=== PATIENT | male | born 1955 | race African-American/Black ===

== ENCOUNTER 2019-03-17 12:59 | Inpatient (IN) | payer OTHER ==
[2019-03-17] MEDS ORDERED: ASPIRIN PO ONE (13:13)
--- NOTE | 2019-03-17 13:45 | XRay Report ---
AP CHEST: HISTORY: chest pain AP view of the chest demonstrates a normal mediastinal and cardiac contour with clear lungs and normal bony and soft tissue structures. IMPRESSION: Unremarkable AP chest.
--- NOTE | 2019-03-17 13:46 | Emergency Department Report ---
HPI - General Chief Complaint: Chest Pain Time Seen by Provider: 03/17/19 13:18 - HPI HPI: 63 M presents to the emergency department from [facility] with complaint of some chest pain, shortness of breath and dizziness that started earlier today. The patient does not speak any Azeri but a coworker employer is currently at bedside translating. 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 He drank some water and laid down with some improvement of the symptoms returned. He was brought over to [facility] who found him to have high blood pressure, low oxygen, and sent him in to the emergency department for further evaluation. The patient is a tobacco smoker but denies any family history. He does have history of high blood pressure. ED Past Medical Hx - Past Medical History Previous Medical History?: No Additional medical history: unknown - Social History Smoking Status: Unknown if ever smoked Substance Use Type: None - Medications Home Medications: Home Medications Medication Instructions Recorded Confirmed Last Taken Type amLODIPine [Norvasc] 5 mg PO DAILY 03/17/19 03/17/19 Unknown History ED Review of Systems ROS: Stated complaint: CHEST PAIN Other details as noted in HPI Comment: All other systems reviewed and negative Constitutional: denies: chills, fever Eyes: denies: eye pain, vision change ENT: denies: ear pain, throat pain Respiratory: shortness of breath. denies: cough Cardiovascular: chest pain. denies: palpitations Gastrointestinal: denies: abdominal pain, vomiting Genitourinary: denies: dysuria, discharge Musculoskeletal: denies: back pain, arthralgia Skin: denies: rash, lesions Neurological: denies: headache, weakness Physical Exam - Physical Exam Physical Exam: GENERAL: The patient is well-developed well-nourished. HENT: Normocephalic. Atraumatic. Patient has moist mucous membranes. EYES: Extraocular motions are intact. Pupils equal reactive to light bilaterally. NECK: Supple. Trachea is midline. CHEST/LUNGS: Clear to auscultation. There is no respiratory distress noted. HEART/CARDIOVASCULAR: Regular. There is no tachycardia. There is no murmur. ABDOMEN: Abdomen is soft, nontender. Patient has normal bowel sounds. There is no abdominal distention. SKIN: Skin is warm and dry. NEURO: The patient is awake, alert, and cooperative. The patient has no focal neurologic deficits. MUSCULOSKELETAL: There is no tenderness or deformity. There is no limitation range of motion. There is no evidence of acute injury. ED Medical Decision Making - Lab Data Result diagrams: 03/17/19 13:17 03/17/19 13:17 - EKG Data -: EKG Interpreted by Me EKG shows normal: sinus rhythm, axis, intervals, QRS complexes, ST-T waves (nonspecific ST-T waves) Rate: normal - EKG Data When compared to previous EKG there are: previous EKG unavailable Interpretation: nonspecific ST-T wave tremayne - Radiology Data Radiology results: image reviewed interpreted by me: Chest x-ray does not show any acute process. There are no pleural effusions, obvious pneumonia and there is no pneumothorax. - Medical Decision Making The patient presents to the emergency department with complaint of a few episodes of some chest pain and dizziness. EKG does not show any signs of ST e levation TN. Patient has had negative troponins 2 and a negative d-dimer thus far. Vital signs stable throughout his ED course. The patient has risk factors of tobacco use and age. His family, translators, the patient has never had a stress test and does not have any established primary care. For this reason I plan to admit the patient to hospital for further evaluation and treatment. He was accepted for admission by the hospitalist, Dr. Paiz. - Differential Diagnosis TN, PE, Costochondritis, GERD Critical Care Time: No Critical care attestation.: If time is entered above; I have spent that time in minutes in the direct care of this critically ill patient, excluding procedure time. ED Disposition Clinical Impression: Angina at rest, Acute chest pain Disposition: OP ADMIT IP TO THIS HOSP Is pt being admited?: Yes Condition: Fair Instructions: Angina (ED), Chest Pain (ED) Referrals: JUVENTINO MEYERS [Other] - 3-5 Days Time of Disposition: 17:50
[2019-03-17 13:49] LABS: Basophils % (Auto) 0.4 % (0.0-1.8); Eosinophils # (Auto) 0.1 K/mm3 (0.0-0.4); Eosinophils % (Auto) 2.3 % (0.0-4.3); Hematocrit 37.2 % (35.5-45.6); Hemoglobin 12.7 gm/dl (11.8-15.2); Lymphocytes # (Auto) 1.9 K/mm3 (1.2-5.4); Lymphocytes % (Auto) 30.2 % (13.4-35.0); Mean Corpuscular HGB Conc 34 % (32-34); Mean Corpuscular Volume 96 fl (84-94); Monocytes # (Auto) 0.3 K/mm3 (0.0-0.8); Monocytes % (Auto) 5.3 % (0.0-7.3); Platelet Count 166 K/mm3 (140-440); Red Blood Count 3.85 M/mm3 (3.65-5.03); Red Cell Distribution Width 14.4 % (13.2-15.2)
[2019-03-17 13:50] LABS: BUN/Creatinine Ratio 20; Blood Urea Nitrogen 18 mg/dL (9-20); Calcium 8.9 mg/dL (8.4-10.2); Hemolysis Index 18
--- NOTE | 2019-03-17 16:53 | History and Physical Report ---
History of Present Illness Chief complaint: My chest hurts History of present illness: 63 YO Male with HTN, HCV presents to ED for evaluation. 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 Pt states that the pain began today while at work. Pt drank some water, and laid down with mild relief of symptoms. Pt states that pain is 6/10, substernal, nonradiating, worsened with exertion, relieved with rest, associated with shortness of breath. Pt acknowledges dypsnea with exertion, decreased exercise tolerance. Pt was transported to his Primary Care Physicians office, and was found to have angina. Pt transported to [facility]. Pt seen and evaluated in ED and found to have Angina, as well as symptoms consistent with Diastolic CHF. Pt admitted to telemetry. Cardiology consulted in ED. No reports of fever, chills, palpitations, syncope, BRBPR, productive cough, unintentional weight loss, night sweats, bone pain, vertigo, skin rash, or recent ill contacts Past History Past Medical History: hepatitis, hypertension Past Surgical History: No surgical history, Other (reviewed) Social history: single. denies: smoking, alcohol abuse, prescription drug abuse Family history: hypertension Medications and Allergies Allergies Allergy/AdvReac Type Severity Reaction Status Date / Time No Known Allergies Allergy Unverified 03/17/19 13:50 Review of Systems Constitutional: no weight loss, no weight gain, no fever, no chills Ears, nose, mouth and throat: no ear pain, no ear discharge, no tinnitis, no decreased hearing, no nose pain Cardiovascular: chest pain, dyspnea on exertion, decreased exercise tolerance, no orthopnea, no palpitations Exam - Constitutional Vitals: Temp Pulse Resp BP Pulse Ox 47 L 11 L 143/70 100 03/17/19 15:00 03/17/19 15:00 03/17/19 15:00 03/17/19 15:00 General appearance: Present: mild distress - EENT Eyes: Present: PERRL ENT: hearing intact, clear oral mucosa - Neck Neck: Present: supple, normal ROM - Respiratory Respiratory effort: normal Respiratory: bilateral: CTA - Cardiovascular Heart Sounds: Present: S1 & S2. Absent: rub, click - Extremities Extremities: pulses symmetrical, No edema Peripheral Pulses: within normal limits - Abdominal General gastrointestinal: Present: soft, non-tender, non-distended, normal bowel sounds Male genitourinary: Present: normal - Integumentary Integumentary: Present: clear, warm, dry - Musculoskeletal Musculoskeletal: gait normal, strength equal bilaterally - Psychiatric Psychiatric: appropriate mood/affect, intact judgment & insight - Neurologic Neurologic: CNII-XII intact, moves all extremities Results - Labs CBC & Chem 7: 03/17/19 13:17 03/17/19 13:17 Labs: Abnormal lab results 03/17/19 03/17/19 Range/Units 13:17 13:17 MCV 96 H (84-94) fl MCH 33 H (28-32) pg Carbon Dioxide 21 L (22-30) mmol/L Glucose 114 H (75-100) mg/dL Assessment and Plan - Patient Problems (1) Angina at rest Current Visit: Yes Status: Acute Plan to address problem: Admit to telemetry, serial cardiac enzymes, ekg, cardiology consulted in ED, stress test, morphine, supplemental oxygen, nitro, aspirin, (2) Diastolic CHF Current Visit: Yes Status: Acute Qualifiers: Heart failure chronicity: acute Qualified Code(s): I50.31 - Acute diastolic (congestive) heart failure Plan to address problem: Echo, bnp, ddimer, strict I/O, monitor uop q shift, blood pressure control, daily weight, cardiology consulted in ED, thyroid panel, magnesium level (3) HTN (hypertension) Current Visit: Yes Status: Acute Qualifiers: Hypertension type: essential hypertension Qualified Code(s): I10 - Essential (primary) hypertension Plan to address problem: Monitor bp q shift, continue medical management. (4) Hepatitis Current Visit: Yes Status: Acute Plan to address problem: outpatient GI consult, supportive care (5) DVT prophylaxis Current Visit: Yes Status: Acute Plan to address problem: SCD to BLE while in bed, prophylactic lovenox
[2019-03-17] MEDS ORDERED: PROVENTIL IH PRN (17:15)
[2019-03-17] MEDS ORDERED: ZOFRAN IV PRN (17:15)
[2019-03-17] MEDS ORDERED: MORPHINE IV PRN (17:15)
[2019-03-17] MEDS ORDERED: TYLENOL PO PRN (17:15)
[2019-03-17] MEDS ORDERED: NITROSTAT SL PRN (17:15)
[2019-03-17] MEDS ORDERED: SODIUM CHLORIDE FLUSH SYRINGE 10 ML IV PRN ×2 (17:15)
[2019-03-17] MEDS ORDERED: BABY ASPIRIN PO STA (17:24)
[2019-03-17 21:19] LABS: Chol/HDL Ratio 2.96 %
[2019-03-17] MEDS: PEPCID PO SCH (22:39)
[2019-03-17] MEDS: SODIUM CHLORIDE FLUSH SYRINGE 10 ML IV SCH (22:39)
[2019-03-18 06:05] LABS: BUN/Creatinine Ratio 18; Blood Urea Nitrogen 16 mg/dL (9-20); Calcium 8.7 mg/dL (8.4-10.2); Hemolysis Index 4
[2019-03-18] MEDS ORDERED: LEXISCAN IV ONE ×2 (08:54→08:55)
--- NOTE | 2019-03-18 10:46 | Consultation ---
History of Present Illness Consult date: 03/18/19 Consult reason: chest pain History of present illness: The patient is a 63-year-old Latvian male who speaks no Cypriot. History is obtained from the chart and from interpreters on the phone. He has a history of hypertension, no prior cardiac history. He presents to the hospital with chest pain. Chest pain was poorly characterized, nonexertional, associated with some shortness of breath. There have been no further symptoms since the initial presenting event. In the emergency room, serial ECGs show a sinus rhythm with early rosacea changes, essentially normal ECG. Serial cardiac troponin levels 3 were normal. He was recommended for a pharmacologic stress test with thallium, which has been completed, results are pending. Past History Past Medical History: hepatitis, hypertension Past Surgical History: No surgical history, Other (reviewed) Social history: single. denies: smoking, alcohol abuse, prescription drug abuse Family history: hypertension Medications and Allergies Allergies Allergy/AdvReac Type Severity Reaction Status Date / Time No Known Allergies Allergy Unverified 03/17/19 13:50 Home Medications Medication Instructions Recorded Confirmed Last Taken Type amLODIPine [Norvasc] 5 mg PO DAILY 03/17/19 03/17/19 Unknown History Active Meds: Active Medications Acetaminophen (Tylenol) 650 mg PO Q4H PRN PRN Reason: Pain MILD(1-3)/Fever >100.5/DUBOIS Albuterol (Proventil) 2.5 mg IH Q4HRT PRN PRN Reason: Shortness Of Breath Famotidine (Pepcid) 10 mg PO BID [facility] Last Admin: 03/17/19 22:39 Dose: 10 mg Documented by: Morphine Sulfate (Morphine) 2 mg IV Q4H PRN PRN Reason: Pain, Moderate (4-6) Nitroglycerin (Nitrostat) 0.4 mg SL Q5M PRN PRN Reason: Chest Pain Ondansetron HCl (Zofran) 4 mg IV Q8H PRN PRN Reason: Nausea And Vomiting Sodium Chloride (Sodium Chloride Flush Syringe 10 Ml) 10 ml IV BID [facility] Last Admin: 03/17/19 22:39 Dose: 10 ml Documented by: Sodium Chloride (Sodium Chloride Flush Syringe 10 Ml) 10 ml IV PRN PRN PRN Reason: LINE FLUSH Review of Systems Cardiovascular: chest pain, shortness of breath, no orthopnea, no palpitations, no rapid/irregular heart beat, no edema, no syncope, no lightheadedness Physical Examination Vital Signs Pulse Resp 69 12 03/17/19 13:05 03/17/19 13:05 General appearance: no acute distress HEENT: Positive: PERRL Neck: Positive: neck supple Cardiac: Positive: Reg Rate and Rhythm Lungs: Positive: clear to auscultation Neuro: Positive: Grossly Intact Abdomen: Positive: Soft Male genitourinary: Positive: deferred Skin: Positive: Clear Extremities: Absent: edema Results 03/17/19 13:17 03/18/19 05:02 Lipids 03/17/19 Range/Units 19:35 Triglycerides 82 (2-149) mg/dL Cholesterol 151 (50-199) mg/dL HDL Cholesterol 51 (40-59) mg/dL Cholesterol/HDL Ratio 2.96 % CBC 03/17/19 Range/Units 13:17 WBC 6.2 (4.5-11.0) K/mm3 RBC 3.85 (3.65-5.03) M/mm3 Hgb 12.7 (11.8-15.2) gm/dl Hct 37.2 (35.5-45.6) % Plt Count 166 (140-440) K/mm3 Lymph # 1.9 (1.2-5.4) K/mm3 [place] # 0.3 (0.0-0.8) K/mm3 Eos # 0.1 (0.0-0.4) K/mm3 Baso # 0.0 (0.0-0.1) K/mm3 Comprehensive Metabolic Panel 03/17/19 03/18/19 Range/Units 13:17 05:02 Sodium 137 140 (137-145) mmol/L Potassium 4.2 3.7 (3.6-5.0) mmol/L Chloride 104.4 106.5 (98-107) mmol/L Carbon Dioxide 21 L 23 (22-30) mmol/L BUN 18 16 (9-20) mg/dL Creatinine 0.9 0.9 (0.8-1.5) mg/dL Glucose 114 H 97 (75-100) mg/dL Calcium 8.9 8.7 (8.4-10.2) mg/dL EKG interpretations - Telemetry EKG Rhythm: Sinus Rhythm Assessment and Plan - Patient Problems (1) Chest pain Current Visit: Yes Status: Acute Plan to address problem: Chest pain is atypical, serial ECGs and normal, serial cardiac enzymes are normal. The patient underwent a pharmacologic stress test with thallium imaging, results are pending.
[2019-03-18] MEDS: PEPCID PO SCH (13:21)
[2019-03-18] MEDS: SODIUM CHLORIDE FLUSH SYRINGE 10 ML IV SCH (13:22)
--- NOTE | 2019-03-18 13:27 | Discharge Summary ---
Providers - Providers Date of Admission: 03/17/19 17:15 Date of discharge: 03/18/19 Attending physician: ROSIE RUSSELL MD 03/17/19 Consult to Cardiac Rehabilitation [CONS] Routine Reason For Exam: Phase I 03/17/19 17:15 Consult to Cardiology [CONS] Routine Consulting Provider: JUAN DANIEL CUELLAR Reason For Exam: chf/angina Primary care physician: JUVENTINO MEYERS Hospitalization Reason for admission: Chest pain, chronic hep C Condition: Stable Pertinent studies: Stress test; negative for acute ischemia Echo; EF of 50-55% Hospital course: 63 YO Male with HTN, HCV presents to ED for evaluation. 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 Pt states that the pain began today while at work. Pt drank some water, and laid down with mild relief of symptoms. Pt states that pain is 6/10, substernal, nonradiating, worsened with exertion, relieved with rest, associated with shortness of breath. Pt acknowledges dypsnea with exertion, decreased exercise tolerance. Pt was transported to his Primary Care Physicians office, and was found to have angina. Pt transported to [facility]. Patient was admitted to the floor and serial troponins were negative, EKG normal sinus rhythm, cardiac stress test was normal. Echo was done and showed ejection fraction of 55-60%, normal systolic function. She was evaluated by cardiology and cleared him for discharge. Patient was hemodynamically stable at the time of discharge. Patient's questions and concerns were addressed as a bedside, his family member was in the room and he speaks Uzbek and doesn't need washer blanket. Appropriate medication scripts were given at the time of discharge. Disposition: - TO HOME OR SELFCARE Time spent for discharge: 32 minutes - Discharge Diagnoses (1) Acute chest pain Status: Acute (2) HTN (hypertension) Status: Acute Qualifiers: Hypertension type: essential hypertension Qualified Code(s): I10 - Essential (primary) hypertension (3) Hepatitis Status: Acute Core Measure Documentation - Palliative Care Palliative Care/ Comfort Measures: Not Applicable - Core Measures Any of the following diagnoses?: none Exam - Physical Exam Narrative exam: Not in cardiopulmonary distress. The patient appeared well nourished and normally developed. Vital signs as documented. Head exam is unremarkable. No scleral icterus . Neck is without jugular venous distension, thyromegaly, or carotid bruits. Lungs are clear to auscultation. Cardiac exam reveals regular rate and Rhythm. First and second heart sounds normal. No murmurs, rubs or gallops. Abdominal exam reveals normal bowel sounds, no masses, no organomegaly and no aortic enlargement. Extremities are nonedematous and both femoral and pedal pulses are normal. MISSION ANALYST: Alert and oriented 3. No focal weakness. - Constitutional Vitals: Temp Pulse Resp BP Pulse Ox 97.9 F 55 L 20 128/70 98 03/18/19 04:41 03/18/19 04:41 03/18/19 04:41 03/18/19 10:34 03/18/19 04:41 Plan Activity: no restrictions Weight Bearing Status: Full Weight Bearing Diet: low salt Follow up with: JUVENTINO MEYERS [Other] - 3-5 Days Prescriptions: amLODIPine [Norvasc] 5 mg PO DAILY #30 tablet Famotidine [Pepcid] 10 mg PO BID #60 tablet
[2019-03-18 15:06] VITALS: BP 116/78
--- NOTE | 2019-03-18 22:43 | Treadmill Report ---
THALLIUM STRESS TEST LEFT VENTRICLE: Left ventricular chamber size is within normal spread. Perfusion study demonstrates homogeneous uptake of the tracer in all segments, no significant perfusion defects were identified. Gated analysis demonstrates normal left ventricular systolic function, ejection fraction 67%. CONCLUSION: Normal myocardial perfusion study. JOB# [id number] CA/NTS
== END 2019-03-18 14:00 | disposition home or self-care (01) | DRG 291 ==
LOC: ED 12:59 → 4A 17:15
PROVIDERS: ADMIT Internal Medicine; ATTEND Internal Medicine
DX: I11.0 Hypertensive heart disease with heart failure (principal); I50.31 Acute diastolic (congestive) heart failure; I20.8 Other forms of angina pectoris; K75.9 Inflammatory liver disease, unspecified; F17.210 Nicotine dependence, cigarettes, uncomplicated; Z71.6 Tobacco abuse counseling; Z82.49 Family history of ischemic heart disease and other diseases of the circulatory system
CPT/HCPCS: 36415; 71045; 78452; 80048; 80061; 83880; 84484; 85025; 85379; 93005; 93010; 93017; 93306; 99406; G0378; A9502; J2785